=== PATIENT | male | born 1990 | race Caucasian/White ===

== ENCOUNTER 2018-02-15 17:01 | Emergency (ER) | payer MEDICAID, OTHER ==
[~2018-02-15] VITALS: Ht 185.4 cm; Wt 77.1 kg
[2018-02-15 19:15] VITALS: BP 114/74
== END 2018-02-15 19:16 | disposition home or self-care (01) ==
LOC: ER 17:04
DX: J03.90 Acute tonsillitis, unspecified (principal)
CPT/HCPCS: A4663

== ENCOUNTER 2025-03-07 15:21 | Emergency (ER) | payer OTHER ==
[~2025-03-07] VITALS: Ht 188 cm; Wt 90.7 kg
[2025-03-07 15:35] VITALS: O2SAT 99
== END 2025-03-07 15:56 | disposition left against medical advice (07) ==
LOC: ER 15:30
DX: Z00.00 Encounter for general adult medical examination without abnormal findings (principal); Z53.21 Procedure and treatment not carried out due to patient leaving prior to being seen by health care provider
CPT/HCPCS: A4606; A4663